=== PATIENT | female | born 1990 | race Two or more races ===

== ENCOUNTER 2020-10-19 07:00 | Day surgery (SDC) | payer OTHER ==
[2020-10-19] MEDS ORDERED: IBU800 MG PO (10:25)
== END 2020-10-19 16:40 | disposition home or self-care (01) ==
LOC: CIR.AMB 07:00
PROVIDERS: ATTEND Obstetrics & Gynecology Gynecology
DX: O26.33 Retained intrauterine contraceptive device in pregnancy, third trimester (principal); Z3A.08 8 weeks gestation of pregnancy; Z20.822 Contact with and (suspected) exposure to COVID-19